=== PATIENT | male | born 2000 | race Caucasian/White ===

== ENCOUNTER 2023-07-31 12:53 | Outpatient (RCR) | payer OTHER, SELFPAY | END 2023-08-27 23:59 | disposition home or self-care (01) | LOC: SPT 12:53 | PROVIDERS: PCP Family Medicine; Visit Provider Family Medicine | DX: G61.0 Guillain-Barre syndrome (principal) | CPT/HCPCS: 97110; 97162; 97530 ==

== ENCOUNTER 2023-08-28 06:00 | Outpatient (RCR) | payer OTHER, SELFPAY | END 2023-09-27 23:59 | disposition home or self-care (01) | LOC: SPT 06:00 | PROVIDERS: PCP Family Medicine; Visit Provider Family Medicine | DX: G61.0 Guillain-Barre syndrome (principal) | CPT/HCPCS: 97110; 97116; 97530 ==

== ENCOUNTER 2023-09-28 06:00 | Outpatient (RCR) | payer OTHER, SELFPAY | END 2023-10-13 23:59 | disposition home or self-care (01) | LOC: SPT 06:00 | PROVIDERS: PCP Family Medicine; Visit Provider Family Medicine | DX: G61.0 Guillain-Barre syndrome (principal) | CPT/HCPCS: 97110; 97530 ==

== ENCOUNTER → 2023-12-29 08:46 | Outpatient (BNVA) | payer OTHER, SELFPAY | PROVIDERS: PCP Family Medicine; Visit Provider Specialist | DX: G61.0 Guillain-Barre syndrome (principal); R29.90 Unspecified symptoms and signs involving the nervous system | CPT/HCPCS: 99205 ==

== ENCOUNTER → 2024-03-07 13:53 | Outpatient (BNVA) | payer OTHER, SELFPAY | PROVIDERS: PCP Family Medicine; Visit Provider Registered Nurse Neonatal Intensive Care | DX: M79.641 Pain in right hand (principal) | CPT/HCPCS: 73130 ==

== ENCOUNTER 2024-06-14 16:29 | Outpatient (CLI) | payer OTHER, SELFPAY ==
--- NOTE | 2024-06-14 16:32 | XRR_ITS ---
PROCEDURE INFORMATION: Exam: XR Chest Exam date and time: 06/14/2024 4:41 PM Age: 23 years old Clinical indication: Pain; Angina pectoris; Additional info: Chest pain TECHNIQUE: Imaging protocol: Radiologic exam of the chest. Views: 2 views. COMPARISON: No relevant prior studies available. FINDINGS: Lungs: No infiltrate or consolidation. Pulmonary vascularity is within normal limits. PA view suggest mild bulla or bleb formation right lung apex Pleural spaces: No pleural effusion or pneumothorax is seen. Heart/Mediastinum: Unremarkable. No cardiomegaly. Bones/joints: Visualized osseous structures show no acute abnormality. XR/XR chest 2V* [id number] IMPRESSION: 1. PA view suggest mild bulla or bleb formation within the right lung apex. 2. No acute findings otherwise.
== END 2024-06-14 16:30 | disposition home or self-care (01) ==
LOC: RAD 16:31
PROVIDERS: PCP Family Medicine; Visit Provider Emergency Medicine
DX: R07.9 Chest pain, unspecified (principal)
CPT/HCPCS: 71046

== ENCOUNTER → 2024-07-05 11:30 | Outpatient (BNVA) | payer OTHER, SELFPAY | PROVIDERS: PCP Family Medicine; Visit Provider Specialist | DX: G61.0 Guillain-Barre syndrome (principal); R29.90 Unspecified symptoms and signs involving the nervous system | CPT/HCPCS: 99214 ==

== ENCOUNTER → 2024-08-09 12:05 | Outpatient (BNVA) | payer OTHER, SELFPAY | PROVIDERS: PCP Family Medicine; Referring Provider Specialist; Visit Provider Specialist | DX: G61.0 Guillain-Barre syndrome (principal) | CPT/HCPCS: 95911 ==

== ENCOUNTER → 2024-10-18 14:09 | Outpatient (BNVA) | payer OTHER, SELFPAY | PROVIDERS: PCP Family Medicine; Visit Provider Specialist | DX: G61.0 Guillain-Barre syndrome (principal) | CPT/HCPCS: 99214 ==

== ENCOUNTER → 2024-12-13 08:15 | Outpatient (BNVA) | payer OTHER, SELFPAY | PROVIDERS: PCP Family Medicine; Visit Provider Podiatrist Foot & Ankle Surgery | DX: L60.0 Ingrowing nail (principal) | CPT/HCPCS: 99213 ==

== ENCOUNTER → 2024-12-27 12:35 | Outpatient (BNVA) | payer OTHER, SELFPAY | PROVIDERS: PCP Family Medicine; Visit Provider Internal Medicine | DX: R07.9 Chest pain, unspecified (principal); R06.02 Shortness of breath | CPT/HCPCS: 93005; 99204 ==

== ENCOUNTER 2025-01-15 20:14 | Emergency (ER) | payer OTHER, SELFPAY ==
[2025-01-15] VITALS (7 sets, daily range): BP systolic 100–132; BP diastolic 63–86; PULSE 93–106; RESP 16–18; TEMP 37.1; O2SAT 93–97
--- NOTE | 2025-01-15 20:18 | ECG_ITS ---
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 Measurements Intervals [place] Rate: 107 P: 85 AK: 138 QRS: 47 QRSD: 98 T: 27 QT: 311 QTc: 415 Interpretive Statements SINUS TACHYCARDIA NONSPECIFIC T-WAVE ABNORMALITY ABNORMAL RHYTHM ECG Compared to ECG 12/27/2024 12:45:19 T-wave abnormality now present Sinus rhythm no longer present Electronically Signed On 01-16-2025 16:47:53 CDT by Kourtney Heath M.D. [email or web address]
--- NOTE | 2025-01-15 20:28 | XRR_ITS ---
PROCEDURE INFORMATION: Exam: XR Chest Exam date and time: 01/15/2025 8:38 PM Age: 24 years old Clinical indication: Pain; Chest pressure; Additional info: Chest pain; Elevated hr; Palpitations; HX of trach placement-stoma present TECHNIQUE: Imaging protocol: Radiologic exam of the chest. Views: 1 view. COMPARISON: CR XR chest 2V* [id number] 06/14/2024 4:41 PM FINDINGS: Lungs: Unremarkable. No consolidation. Pleural spaces: Unremarkable. No pleural effusion. No pneumothorax. Heart/Mediastinum: Unremarkable. No cardiomegaly. Bones/joints: Unremarkable. XR/XR chest 1V portable [id number] IMPRESSION: No acute findings.
--- NOTE | 2025-01-15 20:29 | ED_ITS ---
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 States today the pain was a sharp pain is intermittent. Patient states he had some mild dyspnea as well states pain has improved currently denies any vomiting or diarrhea. Associated symptoms: Reports palpitations; Deny abdominal pain, dyspnea, fever(s), nausea or vomiting Related Data Home Medications ?Medication ?Instructions ?Recorded ?Confirmed No Known Home Medications 12/27/2410/22 Allergies Allergy/AdvReac Type Severity Reaction Status Date / Time chlorhexidine Allergy Unknown Verified 01/15/25 20:22 Review of Systems 2 Const: Denies: fever(s), chills, body aches or change in appetite ENMT: Denies: throat pain or dental pain Card: Reports: chest pain and palpitations Resp: Denies: dyspnea GI: Denies: abdominal pain, nausea, vomiting or diarrhea Musc: Denies: neck pain or back pain Skin/Breast: Denies: rash Neuro: Denies: headache(s) PFSH ED 2 PFSH: Social History Smoking and tobacco/nicotine status: never used tobacco/nicotine Substance/Drug Use: current Substance/Drug use frequency: few times a month Physical Exam 2 Const: COMMON NORMALS: no acute distress, patient oriented x3 and healthy appearing HENMT: COMMON NORMALS: normocephalic and atraumatic HEAD & SCALP: n ormocephalic and atraumatic Eye: COMMON NORMALS: conjunctivae normal CONJUNCTIVA: Yes conjunctivae normal Neck/C-Spine: COMMON NORMALS: full ROM and supple Chest: COMMONS NORMALS: normal inspection of the chest Resp: COMMON NORMALS: normal respiratory effort, No retractions, No use of accessory muscles and clear to auscultation bilaterally AUSCULTATION: clear to auscultation bilaterally Cardio: COMMON NORMALS: regular rhythm and No murmurs present (Cardio) R ATE: tachycardic RHYTHM: regular rhythm Extremity: COMMON NORMALS: normal to inspection and full ROM Neuro: COMMON NORMALS: patient oriented x3 Psych: COMMON NORMALS: mental status grossly normal, Normal thought process present and cooperative THOUGHT PROCESS: Normal thought process present Skin: COMMON NORMALS: no rashes or lesions noted and no wounds GENERAL SKIN EXAM: no rashes or lesions noted Course 2 Vital Signs: Vital signs: Vital Signs Temperature 98.8 F 01/15/25 20:19 Pulse Rate 99 01/15/25 23:08 Respiratory Rate 16 01/15/25 22:30 Blood Pressure 130/63 01/15/25 23:08 Pulse Oximetry 94 01/15/25 23:08 Oxygen Delivery Me thod Room Air 01/15/25 21:30 MDM - Chest Pain Medical Decision Making Patient presents here chest pain is atypical in nature has been pain-free here D-dimer is -2-hour [place] delta is less than 10 he has no signs of ACS he stable for discharge follow back up with cardiology return if worsening. Medical Records I reviewed the patient's medical records. Lab Data I reviewed the patient's lab results. 01/15/25 20:45 01/15/25 20:45 Radiology Impressions Chest X-Ray 01/15/25 20:28 IMPRESSION: No acute findings. Laboratory Results WBC 9.06 10^3/uL (3.29-11.43) 01/15/25 20:45 RBC 5.94 10^6/uL (3.85-5.65) H 01/15/25 20:45 Hgb 16.30 g/dL (11.27-16.99) 01/15/25 20:45 Hct 49.2 % (37-53) 01/15/25 20:45 MCV 82.8 fl (82-101) 01/15/25 20:45 MCH 27.4 pg (27-33) 01/15/25 20:45 MCHC 33.1 g/dL (30-55) 01/15/25 20:45 RDW 12.6 % (12.1-15.1) 01/15/25 20:45 Plt Count 239 10^3/cmm (157-399) 01/15/25 20:45 MPV 9.6 fL (7.4-10.4) 01/15/25 20:45 Neut % (Auto) 61.9 % 01/15/25 20:45 Lymph % (Auto) 29.8 % 01/15/25 20:45 [place] % (Auto) 6.0 % 01/15/25 20:45 Eos % (Auto) 1.4 % 01/15/25 20:45 Baso % (Auto) 0.7 % 01/15/25 20:45 Neut # (Auto) 5.61 10^3/uL (1.8-7.7) 01/15/25 20:45 Lymph # (Auto) 2.7 10^3/uL (0.8-4.8) 01/15/25 20:45 [place] # (Auto) 0.5 10^3/uL (0.2-0.9) 01/15/25 20:45 Eos # (Auto) 0.1 10^3/uL (0.0-0.8) 01/15/25 20:45 Baso # (Auto) 0.1 10^3/uL (0.0-0.1) 01/15/25 20:45 Nucleated RBC % (auto) 0 % 01/15/25 20:45 Nucleated RBCs # 0.0 /100WBC 01/15/25 20:45 D-Dimer <= 0.27 ug/mLFEU (0-0.59) 01/15/25 20:45 Sodium 137 mmol/L (136-145) 01/15/25 20:45 Potassium 4.3 mmol/L (3.5-5.1) 01/15/25 20:45 Chloride 100 mmol/L (98-107) 01/15/25 20:45 Carbon Dioxide 23 mmol/L (22-29) 01/15/25 20:45 Anion Gap 18.3 (5-19) 01/15/25 20:45 BUN 11 mg/dL (6-20) 01/15/25 20:45 Creatinine 0.7 mg/dL (0.7-1.2) 01/15/25 20:45 GFR Calculation 137.4 mL/min (90-130) H 01/15/25 20:45 Glucose 116 mg/dL (65-115) H 01/15/25 20:45 Calculated Osmolality 284 mOsm/kg (285-295) L 01/15/25 20:45 Calcium 9.7 mg/dL (8.5-10.5) 01/15/25 20:45 Total Bilirubin 0.3 mg/dL (0.15-1.2) 01/15/25 20:45 AST 20 U/L (0-40) 01/15/25 20:45 ALT 22 U/L (0-41) 01/15/25 20:45 Alkaline Phosphatase 58 U/L (40-130) 01/15/25 20:45 Troponin T Baseline 32 ng/L (0-15) H 01/15/25 20:45 Troponin T 120 Minute 37.63 ng/L (0-15) H 01/15/25 22:36 Delta Troponin T 5.63 ABS# (0-10) 01/15/25 22:36 NT-Pro-B Natriuret Pep < 36 pg/mL (0-125) 01/15/25 20:45 Total Protein 7.7 g/dL (6.6-8.7) 01/15/25 20:45 Albumin 4.7 g/dL (3.5-5.2) 01/15/25 20:45 Globulin 3.0 g/dL (1.3-4.6) 01/15/25 20:45 All radiology interpretation(s) finalized by discharge EKG Data EKG 1: I personally reviewed and interpreted this EKG as follows: EKG interpretation date: 01/15/25 EKG interpretation time: 20:18 Interpretation: sinus tach hr [address] elevation qrs 98 qtc 373 Discharge Plan Discharge Patient Disposition: Home Clinical Impression: Chest pain Condition: Stable Prescriptions: No Action povidone-iodine [Betadine Swabsticks] 10 % swab 1 applic topical ONCE Qty: 1 0RF Phenol EZ 89 % swab 89 % topical ONCE Qty: 3 0RF lidocaine (PF) 10 mg/mL (1 %) solution 40 mg SUBCUT ONCE Qty: 12 0RF silver nitrate applicators 75-25 % stick 1 applic topical ONCE Qty: 1 0RF No Known Home Medications Discharge Orders: Discharge ED (Routine); Ordered 01/15/25 Ordered By: Joel Antunez Referrals: Florina Lim MD [Primary Care Provider] - Discharge Diet: Advance as tolerated Discharge Activity: Resume usual activity Patient Instructions: Chest Pain (ED) Print Language: Frisian Coding Level of Care Code ED Marine Mechanic for Chg Benitez
[2025-01-15 20:50] LABS: Basophils # 0.1 10^3/uL (0.0-0.1); Basophils % 0.7 %; Eosinophils # 0.1 10^3/uL (0.0-0.8); Eosinophils % 1.4 %; Hematocrit 49.2 % (37-53); Lymphocytes # 2.7 10^3/uL (0.8-4.8); Lymphocytes % 29.8 %; Mean Corpuscular HGB Conc 33.1 g/dL (30-55); Mean Corpuscular Hemoglobin 27.4 pg (27-33); Mean Corpuscular Volume 82.8 fl (82-101); Mean Platelet Volume 9.6 fL (7.4-10.4); Monocytes # 0.5 10^3/uL (0.2-0.9); Neutrophils # 5.61 10^3/uL (1.8-7.7); Neutrophils % 61.9 %; Nucleated Red Blood Cells % 0 %; Platelet Count 239 10^3/cmm (157-399); Red Blood Count 5.94 10^6/uL (3.85-5.65); Red Cell Distribution Width 12.6 % (12.1-15.1); White Blood Count 9.06 10^3/uL (3.29-11.43)
[2025-01-15 21:02] LABS: D Dimer <= 0.27 ug/mLFEU (0-0.59)
[2025-01-15 21:08] LABS: Troponin(5th) Baseline 32 ng/L (0-15)
[2025-01-15 21:17] LABS: Alanine Aminotransferase 22 U/L (0-41); Albumin Level 4.7 g/dL (3.5-5.2); Alkaline Phosphatase 58 U/L (40-130); Aspartate Amino Transferase 20 U/L (0-40); Blood Urea Nitrogen 11 mg/dL (6-20); Calcium 9.7 mg/dL (8.5-10.5); Carbon Dioxide 23 mmol/L (22-29); Chloride 100 mmol/L (98-107); Creatinine Clr Calc Pharmacy 152.6808; Glomerular Filtration Rate 137.4 mL/min (90-130); Glucose 116 mg/dL (65-115); NT Pro B Type Natriuretic Pept < 36 pg/mL (0-125); Osmolality Calculated 284 mOsm/kg (285-295); Sodium 137 mmol/L (136-145); Total Bilirubin 0.3 mg/dL (0.15-1.2); Total Protein 7.7 g/dL (6.6-8.7)
[2025-01-15 21:18] LABS: Anion Gap 18.3 (5-19); Potassium 4.3 mmol/L (3.5-5.1)
--- NOTE | 2025-01-15 22:26 | ECG_ITS ---
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 Measurements Intervals [place] Rate: 84 P: 74 ID: [id number] QRS: 53 QRSD: 95 T: 44 QT: 325 QTc: 384 Interpretive Statements SINUS RHYTHM WITH SINUS ARRHYTHMIA Compared to ECG 01/15/2025 20:18:10 Sinus tachycardia no longer present T-wave abnormality no longer present Electronically Signed On 01-18-2025 20:01:04 CDT by Kourtney Heath M.D. [email or web address]
[2025-01-15 22:58] LABS: Troponin 5 2HR 37.63 ng/L (0-15); Troponin 5 2HR Delta 5.63 ABS# (0-10)
== END 2025-01-15 23:09 | disposition home or self-care (01) ==
PROVIDERS: Emergency Provider Emergency Medicine; PCP Family Medicine
DX: R07.9 Chest pain, unspecified (principal)
CPT/HCPCS: 36415; 71045; 80053; 83880; 84484; 85025; 85378; 93005; 99285

== ENCOUNTER → 2025-01-17 12:55 | Outpatient (BNVA) | payer OTHER, SELFPAY | PROVIDERS: PCP Family Medicine; Visit Provider Specialist | DX: G61.0 Guillain-Barre syndrome (principal); R29.90 Unspecified symptoms and signs involving the nervous system | CPT/HCPCS: 99213 ==

== ENCOUNTER → 2025-01-24 07:51 | Outpatient (BNVA) | payer OTHER, SELFPAY | PROVIDERS: PCP Family Medicine; Visit Provider Nurse Practitioner Family | DX: L81.3 Cafe au lait spots (principal); D22.62 Melanocytic nevi of left upper limb, including shoulder; L70.0 Acne vulgaris; D48.5 Neoplasm of uncertain behavior of skin | CPT/HCPCS: 11102; 99203 ==

== ENCOUNTER 2025-01-26 09:16 | Outpatient (CLI) | payer OTHER, SELFPAY ==
--- NOTE | 2025-01-26 09:30 | USCV_ITS ---
Tyler Dempsey Age: 24 Gender: M : 2000 Exam Date: 01/26/2025 09:43 Ordering Phys: Boaz Olmos M.D ([email or web address]) Technologist: Exam Location: [facility] [place] Indication: SoB BP: 120 / 75 HR: 82 Rhythm: Sinus Technical Quality: Adequate MEASUREMENTS (Male / Female) Normal Values 2D ECHO LV Diastolic Diameter PLAX 3.7 cm 4.2 - 5.9 / 3.9 - 5.3 cm IVS Diastolic Thickness 1.0 cm 0.6 - 1.0 / 0.6 - 0.9 cm IVS Systolic Thickness 1.4 cm LVPW Diastolic Thickness 1.0 cm 0.6 - 1.0 / 0.6 - 0.9 cm LVPW Systolic Thickness 1.5 cm LVOT Diameter 2.0 cm LV Ejection Fraction 2D Teich 60.6 % LV Ejection Fraction MOD 4C 59.6 % LV Ejection Fraction MOD 2C 70.2 % LV Ejection Fraction 2C AL 70.0 % LA Diameter 3.0 cm RA Systolic Volume 4C AL 22.9 ml RA Systolic Volume 4C MOD 22.5 ml Aorta at Sinotubular Diameter 2.6 cm M-MODE LA Ao Ratio MM 1.0 AV Cusp Separation MM 2.8 cm DOPPLER AV Peak Velocity 92.0 cm/s LVOT Peak Velocity 73.0 cm/s AV Area Cont Eq vti 2.8 cm squared AV Area Cont Eq pk 2.5 cm squared MV Peak Velocity 85.0 cm/s MV Area PHT 5.6 cm squared TR Peak Velocity 194.0 cm/s TR Peak Gradient 15.1 mmHg TV Peak E Velocity 114.0 cm/s PV Peak Velocity 75.0 cm/s FINDINGS Left Ventricle Normal left ventricular size, systolic function and wall thickness, with no regional wall motion abnormalities. Left ventricular ejection fraction is estimated at 60 %. Normal diastolic function. Right Ventricle The right ventricle is normal in size and function. Right Atrium The right atrium is normal in size. Left Atrium The left atrium is normal in size. Mitral Valve Structurally normal mitral valve without significant stenosis or prolapse. There is no mitral regurgitation. Aortic Valve Structurally normal aortic valve without significant sclerosis or stenosis. There is no aortic regurgitation. Tricuspid Valve Structurally normal tricuspid valve without significant stenosis or regurgitation. Pulmonary artery systolic pressure is normal. Pulmonic Valve Structurally normal pulmonic valve without significant stenosis. There is no pulmonic regurgitation. Pericardium Normal pericardium without effusion. Aorta Normal ascending aorta dimension. IVC The inferior vena cava appears normal. CONCLUSIONS Normal left ventricular size, systolic function and wall thickness, with no regional wall motion abnormalities. Left ventricular ejection fraction is estimated at 60 %. Normal diastolic function. No significant valve abnormalities. There is no pericardial effusion. Right atrial pressure is around 5 mm of mercury. Marv Gomez MD (Electronically Signed) Final Date: 27 Jan 2025 12:57 S
== END 2025-01-26 09:17 | disposition home or self-care (01) ==
PROVIDERS: PCP Family Medicine; Visit Provider Internal Medicine
DX: R06.02 Shortness of breath (principal)
CPT/HCPCS: 93306

== ENCOUNTER → 2025-04-03 12:50 | Outpatient (BNVA) | payer OTHER, SELFPAY | PROVIDERS: PCP Family Medicine; Visit Provider Internal Medicine | DX: R07.9 Chest pain, unspecified (principal) | CPT/HCPCS: 99214 ==